=== PATIENT | female | born 1935 | race Caucasian/White ===

== ENCOUNTER 2016-10-04 09:10 | Inpatient (IN) | payer MEDICARE, MEDICAID ==
[~2016-10-04] VITALS: Ht 157.5 cm; Wt 77.8 kg
[2016-10-08] MEDS ORDERED: TOPROL XL DPS50 MG PO (14:11)
[2016-10-08] MEDS ORDERED: PRILOSEC DPS20 MG PO (14:11)
[2016-10-08] MEDS ORDERED: FEOSOL-DPS325 MG PO (14:11)
[2016-10-08] MEDS ORDERED: POTASSIUM20 MEQ/15 PO (14:13)
[2016-10-08] MEDS ORDERED: SINGULAIR10 MG PO (14:14)
[2016-10-08] MEDS ORDERED: MECLIZINE HCL12.5 MG PO (14:14)
[2016-10-08] MEDS ORDERED: PULMICORT0.5 MG/2 M IH (14:15)
[2016-10-08] MEDS ORDERED: DUONEB DPS3 ML IH (14:15)
[2016-10-08] MEDS ORDERED: TYLENOL DPS325 MG PO (14:15)
[2016-10-08] MEDS ORDERED: DELTASONE DPS10 MG PO (14:16)
[2016-10-08] MEDS ORDERED: PROVENTIL2.5 MG/3 M IH (14:16)
[2016-10-08] MEDS ORDERED: LEVAQUIN DPS750 MG PO (14:17)
--- NOTE | 2016-10-12 21:19 | ER ---
ADMIT: 10/04/2016 RM/LOC: 527 [facility] MR#: [id number] 2620 [facility] [address] [place] [id number] [address] [place] [address] Emergency Room Report SEX: F AGE: 81 : 1935 DATE: 10/04/2016 ADDENDUM: CHIEF COMPLAINT: Diarrhea. HISTORY OF PRESENT ILLNESS: This 81-year-old female was diagnosed with influenza and pneumonia just 2 days ago. She was placed on Tamiflu, was given Rocephin and azithromycin. The reason they come in today, she has not ate or drank much in the past couple of days, but now she has developed diarrhea. COURSE IN THE ER: CBC, CMP, lactic acid, and chest x-ray was done. Chest x- ray is negative for any acute findings, over-read by Dr. Correia. CBC is normal except for hemoglobin of 10.3, which they said they know that she had a little bit anemic, this is chronic with her. Lactic acid is 1.7. CMP is normal except for potassium of 3.4, BUN 35, creatinine 1.7, and calcium corrected was 9.0. Albumin 3.0. The patient feels significantly better after a liter of fluids. I also gave her Decadron and she feels better with that. As long as her sats stay above 92%, I am going to send her home. Again, she feels significantly better and wants to go home and told to return if any kind or shortness of breath. CLINICAL IMPRESSION: Influenza and bronchitis. ROULA Norman / Lance Correia MD / hang JOB #: [id number] CC: Janie Nice MD, Attending Physician Janie Nice MD, Family Physician
--- NOTE | 2016-10-15 06:29 | HP ---
ADMIT: 10/04/2016 RM/LOC: 527 [facility] MR#: [id number] [address] [id number] [address] [place] [address] History and Physical SEX: F AGE: 81 : 1935 DATE OF SERVICE: CHIEF COMPLAINT: Hypoxia. HISTORY OF PRESENT ILLNESS: The patient is a 81-year-old white female with a history of COPD, who was diagnosed with influenza on Tuesday at Urgent Care. She has been ill for about 5 days with fevers and cough and congestion. When she spiked a high fever, they brought her to urgent care and she was diagnosed with influenza B. She was started on Zithromax and Tamiflu. Yesterday evening, started having a lot of diarrhea and had it all through the night and early this morning, so they brought her into the emergency room. She was rehydrated in the ER, but had some borderline low oxygen levels when I started out and by the end even after some steroids and breathing treatments, still were unable to get her sats above 88% on room air. She had some mild bump in her kidney function as well with the diarrhea. It was felt safest to admit her and monitor as an inpatient. PAST MEDICAL HISTORY: The patient does have chronic obstructive pulmonary disease and has been on chronic steroids for that. She also has Nguyen esophagus, dementia, essential hypertension, gastritis, osteoarthritis, and osteoporosis. PAST SURGICAL HISTORY: Surgeries include an appendectomy, tubal ligation, total knee arthroplasty, spinal diskectomy, colonoscopy, and EGD. ALLERGIES: IODINE AND ZESTRIL. MEDICATIONS: 1. Albuterol nebulizers q.i.d. p.r.n. 2. Budesonide 0.5 mg b.i.d. 3. Donepezil 10 mg daily. 4. Meclizine 12.5 mg b.i.d. 5. Meloxicam 7.5 mg daily. 6. Metoprolol ER 50 mg daily. 7. Montelukast 10 mg daily. 8. Omeprazole 20 mg daily. 9. Potassium chloride liquid 20 mEq per 15 mL, 7.5 mL daily. 10.Symbicort 160/4.5 two puffs b.i.d. FAMILY HISTORY: Father of a stroke at the age of 90 and mother of heart disease at the age of 86 and had hypertension. Daughter has diabetes. SOCIAL HISTORY: The patient lives at home with family independently. There is someone with her at all times due to her dementia. She does drink some coffee. She has never been a smoker. Denies any alcohol use. REVIEW OF SYSTEMS: CONSTITUTIONAL: Just the fevers and chills over the weekend as above. Did feel generally weak then as well. HEENT: Denies headache, but has had some congestion and sore throat. ADMIT: 10/04/2016 RM/LOC: 527 [facility] MR#: [id number] [address] [place] [id number] [address] [place] [address] History and Physical SEX: F AGE: 81 : 1935 CARDIAC: No chest pain or palpitations. RESPIRATORY: Mild shortness of breath and a productive cough. GI: No nausea or vomiting, but has had diarrhea that was just watery with no blood. : She has been urinating less than normal, but no dysuria. MUSCULOSKELETAL: Has chronic arthritic pain. No acute change. SKIN: No rashes. NEURO: Has chronic dementia that is mild. No recent focal neurologic changes. PHYSICAL EXAMINATION: VITAL SIGNS: The patient is afebrile. Pulse 87, respirations 20, blood pressure is 137/69, sats are 87% to 88% on room air and she is now on 2 L of oxygen. GENERAL: She is alert and oriented x3, in no acute distress. HEENT: Head is atraumatic and normocephalic. Sclerae are clear. Pupils are round and reactive. Nares are patent. Oropharynx looks moist without lesions. NECK: Supple with no lymphadenopathy or thyromegaly. HEART: Regular in rate and rhythm without murmurs. LUNGS: Sound is clear to auscultation bilaterally with no wheezes. ABDOMEN: Soft, nondistended, and nontender with good bowel sounds. EXTREMITIES: Have no edema. LAB AND DIAGNOSTIC DATA: Chest x-ray looked normal in the ER, and her lactic acid level is 1.7. Hemoglobin is 10.3, white count 5.9. Potassium 3.4, BUN 35, creatinine 1.7, albumin is 3.0. ASSESSMENT: 1. Influenza B with respiratory manifestations. 2. Diarrhea, non infectious, likely due to her Tamiflu and Zithromax. 3. Chronic obstructive pulmonary disease exacerbation, acute. ADMIT: 10/04/2016 RM/LOC: 527 [facility] MR#: [id number] [address] [place] [id number] [address] [place] [address] History and Physical SEX: F AGE: 81 : 1935 4. Acute hypoxic respiratory failure. 5. Acute kidney injury with history of chronic kidney disease. 6. Mild dehydration. 7. Hypokalemia. 8. Anemia of chronic disease. 9. Chronic kidney disease, stage 3. PLAN: We will continue with IV steroids and Levaquin that was started in the emergency room and rehydrate. We will recheck her kidney function in the morning. We will get her up and ambulating and working with PT tomorrow and hopefully if can get her off oxygen, we will be able to get her out the next day. Janie Nice MD/ hang JOB #: [id number] CC: Janie Nice MD, Attending Physician Janie Niec MD, Family Physician
--- NOTE | 2016-10-15 06:29 | DS ---
ADMIT: 10/04/2016 RM/LOC: 527 [facility] MR#: [id number] [address] [id number] [address] [place] [address] Discharge Summary SEX: F AGE: 81 : 1935 ADMISSION DATE: 10/04/2016 DISCHARGE DATE: 10/07/2016 FINAL DIAGNOSES: 1. Acute influenza B with respiratory manifestations of acute bronchitis. 2. Diarrhea. 3. Dehydration. 4. Acute renal failure. 5. Chronic kidney disease stage 3. 6. Hypoxic respiratory failure. 7. Hypertension. 8. Mild dementia. 9. Anemia of chronic disease. 10.Mild iron deficiency. REASON FOR ADMISSION: The patient is a 81-year-old, female, who was brought to the emergency room with acute diarrhea. She had been into the urgent care 2 days prior and diagnosed with influenza B and was started on Tamiflu and Zithromax. Had worsening diarrhea after that and was feeling dry. She also continued to have a cough. On lab, her creatinine was up to 1.7. Baseline is 1.2. Chest x-ray did not show any acute changes. No signs of pneumonia. HOSPITAL COURSE: The patient was admitted and started on IV steroids, Levaquin, Tamiflu, and IV fluids. She did require oxygen throughout her stay. Her activity level was increased and steroids were weaned as she improved, and her creatinine did normalize after IV fluids were given. She had a negative Hemoccult but was started on ferrous sulfate for some mild iron deficiency. Had a 6 minute walk done by RT and did require 1 L of oxygen to keep her sats above 90%. She had desatted to 85% on room air with activity. By 10/07 she was felt stable for discharge. DISCHARGE INSTRUCTIONS: The patient will be discharged to home as she lives with family who keep close tabs on her. DISCHARGE INSTRUCTIONS: 1. The patient will be discharged on Aricept 10 mg daily. 2. Ferrous sulfate 325 mg daily. 3. Potassium chloride 10 mEq daily. ADMIT: 10/04/2016 RM/LOC: 527 [facility] MR#: [id number] [address] [id number] [address] [place] [address] Discharge Summary SEX: F AGE: 81 : 1935 4. Omeprazole 20 mg daily. 5. Singulair 10 mg daily. 6. Toprol-XL 50 mg daily. 7. DuoNebs q.i.d. 8. Tylenol 650 mg q.4 hours p.r.n. 9. Proventil 2 puffs q.i.d. p.r.n. 10.Meclizine 12.5 mg b.i.d. p.r.n. 11.Tamiflu 75 mg b.i.d. for just 1 more day. 12.Prednisone taper back down to 10 mg daily, which is her baseline. 13.Levaquin 750 mg every other day for 3 more doses. She will follow up with me in a week and needs a CBC without differential and a BMP at that time. Janie Nice MD/ lilliam JOB #: [id number] CC: Janie Nice MD, Attending Physician Janie Nice MD, Family Physician
[2016-12-23] MEDS ORDERED: TOPROL XL DPS50 MG PO (20:05)
[2016-12-23] MEDS ORDERED: PRILOSEC DPS20 MG PO (20:06)
[2016-12-23] MEDS ORDERED: VITAMIN D-32000 UNI1 PO (20:06)
[2016-12-23] MEDS ORDERED: MECLIZINE HCL12.5 MG PO (20:06)
[2016-12-23] MEDS ORDERED: DELTASONE DPS10 MG PO (20:06)
[2016-12-23] MEDS ORDERED: MONTELUKAST SOD10 MG PO (20:07)
[2016-12-23] MEDS ORDERED: ARICEPT10 MG PO (20:07)
[2016-12-23] MEDS ORDERED: K-SOL20 MEQ/15 PO (20:08)
[2016-12-23] MEDS ORDERED: PROVENTIL HFA6.7 GM IH (20:08)
[2016-12-23] MEDS ORDERED: TYLENOL DPS325 MG PO (20:08)
[2016-12-23] MEDS ORDERED: AUGMENTIN 875-1 EACH PO (20:09)
== END 2016-10-07 12:00 | disposition home or self-care (01) | DRG 193 ==
LOC: ER 09:10 → 5MS 14:20
PROVIDERS: ADMIT Family Medicine
DX: J10.1 Influenza due to other identified influenza virus with other respiratory manifestations (principal); J96.01 Acute respiratory failure with hypoxia; N17.9 Acute kidney failure, unspecified; J44.1 Chronic obstructive pulmonary disease with (acute) exacerbation; R19.7 Diarrhea, unspecified; D63.8 Anemia in other chronic diseases classified elsewhere; E61.1 Iron deficiency; K22.70 Barrett's esophagus without dysplasia; F03.90 Unspecified dementia, unspecified severity, without behavioral disturbance, psychotic disturbance, mood disturbance, and anxiety; M19.90 Unspecified osteoarthritis, unspecified site; M81.0 Age-related osteoporosis without current pathological fracture; I12.9 Hypertensive chronic kidney disease with stage 1 through stage 4 chronic kidney disease, or unspecified chronic kidney disease; E86.0 Dehydration; N18.3 Chronic kidney disease, stage 3 (moderate); Z79.52 Long term (current) use of systemic steroids